=== PATIENT | male | born 1980 | race Caucasian/White ===

== ENCOUNTER 2020-03-12 16:56 | Emergency (ER) | payer SELFPAY ==
[~2020-03-12] VITALS: Ht 175.3 cm; Wt 68.0 kg
== END 2020-03-12 18:19 | disposition home or self-care (01) ==
LOC: ER 16:56
DX: J70.5 Respiratory conditions due to smoke inhalation (principal); Z88.6 Allergy status to analgesic agent; F17.200 Nicotine dependence, unspecified, uncomplicated
CPT/HCPCS: 71046; 93005; 93010; 99284-25

== ENCOUNTER 2020-03-17 17:18 | Emergency (ER) | payer SELFPAY ==
[~2020-03-17] VITALS: Ht 175.3 cm; Wt 68.0 kg
== END 2020-03-17 20:55 | disposition home or self-care (01) ==
LOC: ER 17:18
DX: S61.011A Laceration without foreign body of right thumb without damage to nail, initial encounter (principal); F17.200 Nicotine dependence, unspecified, uncomplicated; Z23 Encounter for immunization; Z88.6 Allergy status to analgesic agent; W27.8XXA Contact with other nonpowered hand tool, initial encounter
CPT/HCPCS: 12002; 73140; 90471; 90714; 99283-25

== ENCOUNTER 2020-03-24 18:39 | Emergency (ER) | payer SELFPAY ==
[~2020-03-24] VITALS: Ht 177.8 cm; Wt 70.3 kg
== END 2020-03-24 19:50 | disposition left against medical advice (07) ==
LOC: ER 18:39
DX: S61.011D Laceration without foreign body of right thumb without damage to nail, subsequent encounter (principal); F17.200 Nicotine dependence, unspecified, uncomplicated; Z88.6 Allergy status to analgesic agent
CPT/HCPCS: 99282

== ENCOUNTER 2020-03-29 20:02 | Emergency (ER) | payer SELFPAY ==
[~2020-03-29] VITALS: Ht 175.3 cm; Wt 70.3 kg
== END 2020-03-29 20:50 | disposition home or self-care (01) ==
LOC: ER 20:02
DX: S61.011D Laceration without foreign body of right thumb without damage to nail, subsequent encounter (principal); F17.200 Nicotine dependence, unspecified, uncomplicated; Z88.6 Allergy status to analgesic agent

== ENCOUNTER 2020-07-23 20:01 | Emergency (ER) | payer OTHER ==
[~2020-07-23] VITALS: Ht 182.9 cm; Wt 81.7 kg
[2020-07-23 20:38] LABS: BASOPHILS ABSOLUTE AUTO 0.11 K/mm3 (0.00-0.23); BASOPHILS PERCENT AUTO 1 % (0-2); EOSINOPHILS ABSOLUTE AUTO 0.33 K/mm3 (0.00-0.68); EOSINOPHILS PERCENT AUTO 3 % (0-6); Hematocrit 48.5 % (37.0-53.0); Hemoglobin 16.1 g/dL (13.5-17.5); IMMATURE GRAN ABSOLUTE AUTO 0.04 K/mm3 (0.00-0.10); IMMATURE GRAN PERCENT AUTO 0 % (0-1); LYMPHOCYTES ABSOLUTE AUTO 3.78 K/mm3 (0.84-5.20); LYMPHOCYTES PERCENT AUTO 31 % (21-46); MONOCYTES ABSOLUTE AUTO 0.83 K/mm3 (0.16-1.47); MONOCYTES PERCENT AUTO 7 % (4-13); Mean Corpuscular HGB 30.1 pg (26.0-34.0); Mean Corpuscular HGB Conc 33.2 g/dL (31.5-36.5); Mean Corpuscular Volume 91 fL (80-100); Mean Platelet Volume 10.4 fL (9.1-12.4); NEUTROPHILS PERCENT AUTO 58 % (41-73); Platelet Count 294 K/mm3 (150-400); RDW Coefficient Variation 13.2 % (11.7-14.2); RDW Standard Deviation 44.2 fL (35.1-46.3); Red Blood Cell Count 5.35 M/mm3 (4.30-5.90); White Blood Cell Count 12.19 K/mm3 (4.00-11.30)
[2020-07-23 20:57] LABS: Troponin I <0.015 ng/mL (0.000-0.040)
[2020-07-23 20:58] LABS: Alanine Aminotransfer (ALT/SGP 30 U/L (12-78); Albumin, Blood 4.3 g/dL (3.4-5.0); Albumin/Globulin Ratio 1.3 (0.8-1.8); Alk Phos 67 U/L (50-136); Anion Gap 5 mmol/L (6-16); Aspartate Aminotrans (AST/SGOT 22 U/L (12-37); Bilirubin, Total 0.2 mg/dL (0.1-1.0); Blood Urea Nitrogen 18 mg/dL (8-24); Bun/Creatinine Ratio 22.4 (12.0-20.0); CO2, Blood 31 mmol/L (21-32); Calcium, Blood 8.9 mg/dL (8.5-10.1); Chloride, Blood 104 mmol/L (98-108); Globulin, Blood 3.4 g/dL (2.2-4.0); Glomerular Filtration Rate >60 (60-); Glucose, Blood 138 mg/dL (70-99); Potassium, Blood 3.8 mmol/L (3.5-5.5); Sodium, Blood 140 mmol/L (136-145); Total Protein, Blood 7.7 g/dL (6.4-8.2)
[2020-07-24] MEDS ORDERED: Veetids 500500 MG PO (19:50)
== END 2020-07-24 22:38 | disposition left against medical advice (07) ==
LOC: ER 20:01
PROVIDERS: Physician Assistant
DX: K03.81 Cracked tooth (principal); R06.02 Shortness of breath; R07.89 Other chest pain; Z53.21 Procedure and treatment not carried out due to patient leaving prior to being seen by health care provider
CPT/HCPCS: 36415; 71046; 80053; 84484; 85025

== ENCOUNTER 2020-07-24 17:44 | Emergency (ER) | payer OTHER ==
[~2020-07-24] VITALS: Ht 175.3 cm; Wt 74.8 kg
[2020-07-24] MEDS ORDERED: Veetids 500500 MG PO (19:50)
== END 2020-07-24 20:00 | disposition home or self-care (01) ==
LOC: ER 17:44
DX: K08.89 Other specified disorders of teeth and supporting structures (principal); R05 Cough; R07.9 Chest pain, unspecified; F17.210 Nicotine dependence, cigarettes, uncomplicated; Z20.828 Contact with and (suspected) exposure to other viral communicable diseases; Z88.6 Allergy status to analgesic agent
CPT/HCPCS: 93005; 93010; 99283-25; U0003

== ENCOUNTER 2020-07-27 10:38 | Emergency (ER) | payer OTHER ==
[~2020-07-27] VITALS: Ht 175.3 cm; Wt 70.3 kg
[~2020-07-27 10:38] MED LIST: Veetids 500500 MG PO
== END 2020-07-27 11:24 | disposition home or self-care (01) ==
LOC: ER 10:38
DX: K04.7 Periapical abscess without sinus (principal); Z79.82 Long term (current) use of aspirin; F17.210 Nicotine dependence, cigarettes, uncomplicated
CPT/HCPCS: 99282

== ENCOUNTER 2020-08-11 12:56 | Emergency (ER) | payer OTHER ==
[~2020-08-11] VITALS: Ht 175.3 cm; Wt 70.3 kg
[2020-08-11 13:43] LABS: BASOPHILS ABSOLUTE AUTO 0.09 K/mm3 (0.00-0.23); BASOPHILS PERCENT AUTO 1 % (0-2); EOSINOPHILS PERCENT AUTO 4 % (0-6); Hematocrit 47.7 % (37.0-53.0); Hemoglobin 15.7 g/dL (13.5-17.5); IMMATURE GRAN ABSOLUTE AUTO 0.07 K/mm3 (0.00-0.10); IMMATURE GRAN PERCENT AUTO 1 % (0-1); LYMPHOCYTES ABSOLUTE AUTO 3.03 K/mm3 (0.84-5.20); LYMPHOCYTES PERCENT AUTO 32 % (21-46); MONOCYTES ABSOLUTE AUTO 0.83 K/mm3 (0.16-1.47); MONOCYTES PERCENT AUTO 9 % (4-13); Mean Corpuscular HGB 30.1 pg (26.0-34.0); Mean Corpuscular HGB Conc 32.9 g/dL (31.5-36.5); Mean Corpuscular Volume 92 fL (80-100); Mean Platelet Volume 10.5 fL (9.1-12.4); NEUTROPHILS ABSOLUTE AUTO 5.19 K/mm3 (1.96-9.15); NEUTROPHILS PERCENT AUTO 54 % (41-73); Platelet Count 274 K/mm3 (150-400); RDW Coefficient Variation 13.2 % (11.7-14.2); RDW Standard Deviation 44.3 fL (35.1-46.3); Red Blood Cell Count 5.21 M/mm3 (4.30-5.90); White Blood Cell Count 9.61 K/mm3 (4.00-11.30)
[2020-08-11 14:16] LABS: Alanine Aminotransfer (ALT/SGP 63 U/L (12-78); Albumin/Globulin Ratio 1.1 (0.8-1.8); Alk Phos 69 U/L (50-136); Anion Gap 5 mmol/L (6-16); Aspartate Aminotrans (AST/SGOT 27 U/L (12-37); Bilirubin, Total 0.3 mg/dL (0.1-1.0); Blood Urea Nitrogen 14 mg/dL (8-24); Bun/Creatinine Ratio 16.1 (12.0-20.0); CO2, Blood 31 mmol/L (21-32); Calcium, Blood 8.6 mg/dL (8.5-10.1); Chloride, Blood 105 mmol/L (98-108); Creatinine, Blood 0.87 mg/dL (0.60-1.20); Globulin, Blood 3.6 g/dL (2.2-4.0); Glomerular Filtration Rate >60 (60-); Glucose, Blood 108 mg/dL (70-99); Potassium, Blood 3.8 mmol/L (3.5-5.5); Sodium, Blood 141 mmol/L (136-145); Total Protein, Blood 7.6 g/dL (6.4-8.2); Troponin I <0.015 ng/mL (0.000-0.040)
[2020-08-11] MEDS ORDERED: PEPCID40 MG PO (14:50)
[2020-08-11] MEDS ORDERED: ONDA4ODT SL (14:50)
== END 2020-08-11 14:57 | disposition home or self-care (01) ==
LOC: ER 12:56
PROVIDERS: Emergency Medicine
DX: R07.9 Chest pain, unspecified (principal); R19.5 Other fecal abnormalities; Z88.6 Allergy status to analgesic agent; Z87.891 Personal history of nicotine dependence
CPT/HCPCS: 36415; 71046; 80053; 82272; 84484; 85025; 93005; 93010; 99284-25

== ENCOUNTER → 2020-08-19 | Outpatient (CLI) | payer OTHER ==
[~2020-08-19] MED LIST changes: +ONDA4ODT SL; +PEPCID40 MG PO
== END | disposition home or self-care (01) ==
LOC: LAB EV 19:09 → LAB SHORT 19:09
DX: K22.8 Other specified diseases of esophagus (principal); Z20.828 Contact with and (suspected) exposure to other viral communicable diseases
CPT/HCPCS: U0003

== ENCOUNTER 2020-09-08 18:13 | Emergency (ER) | payer OTHER ==
[~2020-09-08] VITALS: Ht 175.3 cm; Wt 70.3 kg
== END 2020-09-08 21:23 | disposition home or self-care (01) ==
LOC: ER 18:13
DX: R10.9 Unspecified abdominal pain (principal); R14.0 Abdominal distension (gaseous); R20.0 Anesthesia of skin; F31.9 Bipolar disorder, unspecified; Z88.6 Allergy status to analgesic agent; F17.210 Nicotine dependence, cigarettes, uncomplicated
CPT/HCPCS: 99283

== ENCOUNTER 2020-11-20 21:19 | Emergency (ER) | payer OTHER ==
[~2020-11-20] VITALS: Ht 175.3 cm; Wt 74.8 kg
[2020-11-20 22:11] LABS: BASOPHILS PERCENT AUTO 1 % (0-2); EOSINOPHILS ABSOLUTE AUTO 0.26 K/mm3 (0.00-0.68); EOSINOPHILS PERCENT AUTO 2 % (0-6); Hematocrit 46.1 % (37.0-53.0); Hemoglobin 15.3 g/dL (13.5-17.5); IMMATURE GRAN ABSOLUTE AUTO 0.03 K/mm3 (0.00-0.10); IMMATURE GRAN PERCENT AUTO 0 % (0-1); LYMPHOCYTES ABSOLUTE AUTO 3.17 K/mm3 (0.84-5.20); LYMPHOCYTES PERCENT AUTO 29 % (21-46); MONOCYTES ABSOLUTE AUTO 1.19 K/mm3 (0.16-1.47); MONOCYTES PERCENT AUTO 11 % (4-13); Mean Corpuscular HGB Conc 33.2 g/dL (31.5-36.5); Mean Corpuscular Volume 90 fL (80-100); Mean Platelet Volume 10.3 fL (9.1-12.4); NEUTROPHILS ABSOLUTE AUTO 6.18 K/mm3 (1.96-9.15); NEUTROPHILS PERCENT AUTO 57 % (41-73); Platelet Count 278 K/mm3 (150-400); RDW Coefficient Variation 12.4 % (11.7-14.2); RDW Standard Deviation 41.2 fL (35.1-46.3); White Blood Cell Count 10.93 K/mm3 (4.00-11.30)
[2020-11-20 22:29] LABS: Alanine Aminotransfer (ALT/SGP 40 U/L (12-78); Albumin/Globulin Ratio 1.2 (0.8-1.8); Alk Phos 73 U/L (50-136); Anion Gap 5 mmol/L (6-16); Aspartate Aminotrans (AST/SGOT 27 U/L (12-37); Bilirubin, Total 0.4 mg/dL (0.1-1.0); Blood Urea Nitrogen 12 mg/dL (8-24); Bun/Creatinine Ratio 12.9 (12.0-20.0); CO2, Blood 30 mmol/L (21-32); Calcium, Blood 8.6 mg/dL (8.5-10.1); Chloride, Blood 104 mmol/L (98-108); Creatinine, Blood 0.93 mg/dL (0.60-1.20); Globulin, Blood 3.4 g/dL (2.2-4.0); Glomerular Filtration Rate >60 (60-); Glucose, Blood 115 mg/dL (70-99); Potassium, Blood 3.6 mmol/L (3.5-5.5); Sodium, Blood 139 mmol/L (136-145); Total Protein, Blood 7.4 g/dL (6.4-8.2)
[2020-11-20 23:52] LABS: Troponin I <0.015 ng/mL (0.000-0.040)
[2020-11-21] MEDS ORDERED: Vistaril25 MG PO (00:29)
== END 2020-11-21 00:42 | disposition home or self-care (01) ==
LOC: ER 21:19
PROVIDERS: Physician Assistant
DX: R11.2 Nausea with vomiting, unspecified (principal); Z88.6 Allergy status to analgesic agent; F17.210 Nicotine dependence, cigarettes, uncomplicated
CPT/HCPCS: 36415; 80053; 83690; 84484; 85025; 93005; 93010; 96374; 99284-25; A9270; J2060; J2405

== ENCOUNTER 2020-12-23 17:28 | Emergency (ER) | payer OTHER ==
[~2020-12-23] VITALS: Ht 175.3 cm; Wt 74.8 kg
[~2020-12-23 17:28] MED LIST changes: +Vistaril25 MG PO
== END 2020-12-23 18:23 | disposition home or self-care (01) ==
LOC: ER 17:28
DX: S93.522A Sprain of metatarsophalangeal joint of left great toe, initial encounter (principal); Z88.6 Allergy status to analgesic agent; F17.210 Nicotine dependence, cigarettes, uncomplicated; W03.XXXA Other fall on same level due to collision with another person, initial encounter
CPT/HCPCS: 73630; 99283-25

== ENCOUNTER 2021-07-09 02:55 | Emergency (ER) | payer OTHER ==
[~2021-07-09] VITALS: Ht 177.8 cm; Wt 74.8 kg
== END 2021-07-09 03:45 | disposition left against medical advice (07) ==
LOC: ER 02:55
DX: Z53.21 Procedure and treatment not carried out due to patient leaving prior to being seen by health care provider (principal)
CPT/HCPCS: 93005; 93010

== ENCOUNTER 2023-08-24 11:14 | Emergency (ER) | payer OTHER ==
[~2023-08-24] VITALS: Ht 175.3 cm; Wt 74.8 kg
[2023-08-24 11:57] LABS: BASOPHILS ABSOLUTE AUTO 0.06 K/mm3 (0.00-0.23); BASOPHILS PERCENT AUTO 0 % (0-2); EOSINOPHILS ABSOLUTE AUTO 0.25 K/mm3 (0.00-0.68); EOSINOPHILS PERCENT AUTO 2 % (0-6); Hematocrit 51.4 % (37.0-53.0); Hemoglobin 17.7 g/dL (13.5-17.5); IMMATURE GRAN ABSOLUTE AUTO 0.06 K/mm3 (0.00-0.10); IMMATURE GRAN PERCENT AUTO 0 % (0-1); LYMPHOCYTES ABSOLUTE AUTO 1.16 K/mm3 (0.84-5.20); LYMPHOCYTES PERCENT AUTO 8 % (21-46); MONOCYTES ABSOLUTE AUTO 1.13 K/mm3 (0.16-1.47); MONOCYTES PERCENT AUTO 8 % (4-13); Mean Corpuscular HGB 30.4 pg (26.0-34.0); Mean Corpuscular HGB Conc 34.4 g/dL (31.5-36.5); Mean Corpuscular Volume 88 fL (80-100); Mean Platelet Volume 10.9 fL (9.1-12.4); NEUTROPHILS ABSOLUTE AUTO 11.18 K/mm3 (1.96-9.15); NEUTROPHILS PERCENT AUTO 81 % (41-73); Platelet Count 258 K/mm3 (150-400); RDW Coefficient Variation 13.2 % (11.7-14.2); RDW Standard Deviation 42.5 fL (35.1-46.3); Red Blood Cell Count 5.83 M/mm3 (4.30-5.90); White Blood Cell Count 13.84 K/mm3 (4.00-11.30)
[2023-08-24 12:24] LABS: Albumin, Blood 3.9 g/dL (3.4-5.0); Albumin/Globulin Ratio 1.1 (0.8-1.8); Bilirubin, Total 0.5 mg/dL (0.1-1.0); Bun/Creatinine Ratio 19.8 (12.0-20.0); Calcium, Blood 8.7 mg/dL (8.5-10.1); Creatinine, Blood 1.06 mg/dL (0.60-1.20); Globulin, Blood 3.7 g/dL (2.2-4.0); Potassium, Blood 4.1 mmol/L (3.5-5.5); Total Protein, Blood 7.6 g/dL (6.4-8.2)
[2023-08-24 12:25] LABS: Influenza A, PCR NEGATIVE (NEGATIVE); Influenza B, PCR NEGATIVE (NEGATIVE); Resp Syncytial Virus, PCR NEGATIVE (NEGATIVE); SARS-Cov-2 (COVID-19) PCR, MMC NEGATIVE (NEGATIVE)
[2023-08-24 14:45] VITALS: BP 119/97
[2023-08-24 15:16] LABS: Source, Urine Clean Catch
[2023-08-24 15:39] LABS: Appearance, Urine Clear (Clear); Bilirubin, Urine Neg (Neg); Blood, Urine Neg (Neg); Color, Urine Yellow (P-Yellow); Glucose Qualitative, Urine Neg (Neg); Ketones, Urine Neg (Neg); Leukocyte Esterase, Urine Neg (Neg); Nitrite, Urine Neg (Neg); Protein, Urine Neg (Neg); Specific Gravity, Urine 1.015 (1.003-1.022); Urobilinogen, Urine NORM (Normal)
[2023-08-24] MEDS ORDERED: ONDA4ODT MM (15:43)
== END 2023-08-24 15:54 | disposition home or self-care (01) ==
LOC: ER 11:14
PROVIDERS: Student in an Organized Health Care Education/Training Program
DX: K52.9 Noninfective gastroenteritis and colitis, unspecified (principal); F17.210 Nicotine dependence, cigarettes, uncomplicated; Z20.822 Contact with and (suspected) exposure to COVID-19; Z88.8 Allergy status to other drugs, medicaments and biological substances
CPT/HCPCS: 0241U; 80053; 81003; 83690; 85025; 96361; 96374; 96375; 99284-25; J2405; J7030

== ENCOUNTER 2023-08-27 19:27 | Emergency (ER) | payer OTHER ==
[~2023-08-27] VITALS: Ht 177.8 cm; Wt 74.8 kg
[~2023-08-27 19:27] MED LIST changes: +ONDA4ODT MM
[2023-08-27 20:11] LABS: Source, Urine Clean Catch
[2023-08-27 20:13] LABS: Appearance, Urine Cloudy (Clear); Blood, Urine 5+ (Neg); Color, Urine Brown (P-Yellow); Glucose Qualitative, Urine Neg (Neg); Ketones, Urine 1+ (Neg); Leukocyte Esterase, Urine 2+ (Neg); Nitrite, Urine Pos (Neg); Protein, Urine 3+ (Neg); Urobilinogen, Urine 1+ (Normal)
[2023-08-27 20:18] LABS: Bilirubin, Urine 1+ (Neg)
[2023-08-27 20:25] LABS: Bacteria Many /hpf; Calcium Oxalate Crystals Mod /hpf; Red Blood Cells, Urine TNTC /hpf (0-2); Squamous Epithelial Cells Rare /hpf (Few)
[2023-08-27 20:39] LABS: BASOPHILS ABSOLUTE AUTO 0.06 K/mm3 (0.00-0.23); BASOPHILS PERCENT AUTO 1 % (0-2); EOSINOPHILS ABSOLUTE AUTO 0.26 K/mm3 (0.00-0.68); EOSINOPHILS PERCENT AUTO 2 % (0-6); Hematocrit 46.3 % (37.0-53.0); IMMATURE GRAN ABSOLUTE AUTO 0.03 K/mm3 (0.00-0.10); IMMATURE GRAN PERCENT AUTO 0 % (0-1); LYMPHOCYTES ABSOLUTE AUTO 3.21 K/mm3 (0.84-5.20); LYMPHOCYTES PERCENT AUTO 28 % (21-46); MONOCYTES ABSOLUTE AUTO 0.84 K/mm3 (0.16-1.47); MONOCYTES PERCENT AUTO 7 % (4-13); Mean Corpuscular HGB Conc 34.6 g/dL (31.5-36.5); Mean Corpuscular Volume 87 fL (80-100); Mean Platelet Volume 10.6 fL (9.1-12.4); NEUTROPHILS ABSOLUTE AUTO 6.94 K/mm3 (1.96-9.15); NEUTROPHILS PERCENT AUTO 61 % (41-73); Platelet Count 261 K/mm3 (150-400); RDW Coefficient Variation 13.2 % (11.7-14.2); Red Blood Cell Count 5.34 M/mm3 (4.30-5.90); White Blood Cell Count 11.34 K/mm3 (4.00-11.30)
[2023-08-27 21:05] LABS: Albumin, Blood 3.7 g/dL (3.4-5.0); Albumin/Globulin Ratio 1.1 (0.8-1.8); Bilirubin, Total 0.3 mg/dL (0.1-1.0); Bun/Creatinine Ratio 12.3 (12.0-20.0); Calcium, Blood 9.1 mg/dL (8.5-10.1); Creatinine, Blood 1.14 mg/dL (0.60-1.20); Globulin, Blood 3.4 g/dL (2.2-4.0); Potassium, Blood 3.7 mmol/L (3.5-5.5); Total Protein, Blood 7.1 g/dL (6.4-8.2)
[2023-08-28 00:37] VITALS: BP 140/107
== END 2023-08-28 03:15 | disposition home or self-care (01) ==
LOC: ER 19:27
PROVIDERS: Emergency Medicine
DX: R31.9 Hematuria, unspecified (principal); E86.0 Dehydration; F17.210 Nicotine dependence, cigarettes, uncomplicated; Z87.39 Personal history of other diseases of the musculoskeletal system and connective tissue; Z88.8 Allergy status to other drugs, medicaments and biological substances
CPT/HCPCS: 74177; 80053; 81001; 82550; 83605; 85025; 87081; 87086; 99284-25; J0696; J7030; Q9967

== ENCOUNTER 2024-07-24 12:38 | Emergency (ER) | payer OTHER ==
[~2024-07-24] VITALS: Ht 177.8 cm; Wt 72.5 kg
[2024-07-24 12:56] VITALS: BP 137/97
[2024-07-24 14:05] LABS: U Amphetamine Screen Not Detected; U Barbituate Screen Not Detected; U Benzodiazapine Screen Not Detected; U Buprenorphine Screen Not Detected; U Cannabinoids Screen DETECTED; U Cocaine Screen Not Detected; U Methadone Screen Not Detected; U Methamphetamine Screen Not Detected; U Opiates Screen Not Detected; U Oxycodone Screen Not Detected; U Phencyclidine Screen Not Detected
== END 2024-07-24 14:19 | disposition home or self-care (01) ==
LOC: ER 12:38
PROVIDERS: Physician Assistant
DX: F41.9 Anxiety disorder, unspecified (principal); F17.210 Nicotine dependence, cigarettes, uncomplicated; Z88.6 Allergy status to analgesic agent
CPT/HCPCS: 99283

== ENCOUNTER → 2024-08-26 | Outpatient (CLI) | payer OTHER ==
[2024-08-27 13:42] LABS: Chlamydia Trachomatis Urine NOT DETECTED (NOT DETECT); Neisseria Gonorrhoea Urine NOT DETECTED (NOT DETECT)
== END ==
LOC: LAB 16:39 → LAB SHORT 16:39
PROVIDERS: Family Medicine
DX: R30.0 Dysuria (principal); Z20.9 Contact with and (suspected) exposure to unspecified communicable disease; Z72.51 High risk heterosexual behavior
CPT/HCPCS: 87086; 87491; 87591

== ENCOUNTER → 2024-10-21 | Outpatient (CLI) | payer OTHER ==
[~2024-10-21] MED LIST changes: +ACET500 PO
[2024-10-21 14:54] LABS: BASOPHILS ABSOLUTE AUTO 0.09 K/mm3 (0.00-0.23); BASOPHILS PERCENT AUTO 1 % (0-2); EOSINOPHILS ABSOLUTE AUTO 0.13 K/mm3 (0.00-0.68); EOSINOPHILS PERCENT AUTO 1 % (0-6); Hematocrit 47.1 % (37.0-53.0); Hemoglobin 16.1 g/dL (13.5-17.5); IMMATURE GRAN ABSOLUTE AUTO 0.03 K/mm3 (0.00-0.10); IMMATURE GRAN PERCENT AUTO 0 % (0-1); LYMPHOCYTES ABSOLUTE AUTO 2.66 K/mm3 (0.84-5.20); LYMPHOCYTES PERCENT AUTO 27 % (21-46); MONOCYTES ABSOLUTE AUTO 0.69 K/mm3 (0.16-1.47); MONOCYTES PERCENT AUTO 7 % (4-13); Mean Corpuscular HGB 30.1 pg (26.0-34.0); Mean Corpuscular HGB Conc 34.2 g/dL (31.5-36.5); Mean Corpuscular Volume 88 fL (80-100); Mean Platelet Volume 10.5 fL (9.1-12.4); NEUTROPHILS PERCENT AUTO 64 % (41-73); Platelet Count 295 K/mm3 (150-400); RDW Coefficient Variation 13.9 % (11.7-14.2); RDW Standard Deviation 44.4 fL (35.1-46.3); Red Blood Cell Count 5.34 M/mm3 (4.30-5.90)
[2024-10-21 15:17] LABS: Albumin, Blood 4.2 g/dL (3.4-5.0); Albumin/Globulin Ratio 1.1 (0.8-1.8); Bilirubin, Total 0.4 mg/dL (0.1-1.0); Calcium, Blood 9.2 mg/dL (8.5-10.1); Creatinine, Blood 1.17 mg/dL (0.60-1.20); Globulin, Blood 3.7 g/dL (2.2-4.0); Potassium, Blood 3.7 mmol/L (3.5-5.5); Thyroid Stimulating Hormone 1.949 uIU/mL (0.360-4.800); Total Protein, Blood 7.9 g/dL (6.4-8.2)
== END ==
LOC: LAB SHORT 14:49 → LAB 14:49
PROVIDERS: Physician Assistant
DX: R53.83 Other fatigue (principal)
CPT/HCPCS: 80053; 84443; 85025

== ENCOUNTER 2025-03-22 03:35 | Day surgery (SDC) | payer OTHER ==
[~2025-03-22 03:35] MED LIST changes: +AMOCLA875 PO; +HYDR1TAB94 PO; +[UNRECOGNIZED DRUG - OTHER] PO
== END 2025-03-22 23:42 | disposition home or self-care (01) ==
LOC: WOUND 03:35
DX: S91.301A Unspecified open wound, right foot, initial encounter (principal); X58.XXXA Exposure to other specified factors, initial encounter
CPT/HCPCS: G0463

== ENCOUNTER 2025-03-24 03:02 | Day surgery (SDC) | payer OTHER ==
[2025-03-24] MEDS ORDERED: Lidocaine HCl 4% Cream 5 GM ONE (12:46)
== END 2025-03-24 23:00 | disposition home or self-care (01) ==
LOC: WOUND 03:02
DX: S91.301A Unspecified open wound, right foot, initial encounter (principal); W20.8XXA Other cause of strike by thrown, projected or falling object, initial encounter
CPT/HCPCS: A9270

== ENCOUNTER 2025-04-05 02:52 | Day surgery (SDC) | payer OTHER | END 2025-04-05 23:00 | disposition home or self-care (01) | LOC: WOUND 02:52 | DX: L97.515 Non-pressure chronic ulcer of other part of right foot with muscle involvement without evidence of necrosis (principal); S91.301A Unspecified open wound, right foot, initial encounter; L02.611 Cutaneous abscess of right foot; B95.5 Unspecified streptococcus as the cause of diseases classified elsewhere; W20.8XXA Other cause of strike by thrown, projected or falling object, initial encounter | CPT/HCPCS: G0463 ==

== ENCOUNTER 2025-04-12 08:00 | Day surgery (SDC) | payer OTHER | END 2025-04-12 23:00 | disposition home or self-care (01) | LOC: WOUND 08:00 | DX: L97.515 Non-pressure chronic ulcer of other part of right foot with muscle involvement without evidence of necrosis (principal); S91.301D Unspecified open wound, right foot, subsequent encounter; L02.611 Cutaneous abscess of right foot | CPT/HCPCS: G0463 ==

== ENCOUNTER 2025-04-14 03:21 | Day surgery (SDC) | payer OTHER ==
[2025-04-14] MEDS ORDERED: Lidocaine HCl 4% Cream 5 GM ONE (14:58)
== END 2025-04-14 23:00 | disposition home or self-care (01) ==
LOC: WOUND 03:21
DX: L97.515 Non-pressure chronic ulcer of other part of right foot with muscle involvement without evidence of necrosis (principal); S91.301D Unspecified open wound, right foot, subsequent encounter; L02.611 Cutaneous abscess of right foot
CPT/HCPCS: A9270

== ENCOUNTER 2025-04-17 14:32 | Emergency (ER) | payer OTHER ==
[~2025-04-17] VITALS: Ht 175.3 cm; Wt 72.6 kg
[2025-04-17 14:55] VITALS: BP 101/63
== END 2025-04-17 17:28 | disposition home or self-care (01) ==
LOC: ER 14:32
DX: Z48.00 Encounter for change or removal of nonsurgical wound dressing (principal); L97.519 Non-pressure chronic ulcer of other part of right foot with unspecified severity
CPT/HCPCS: 99283

== ENCOUNTER 2025-04-19 04:11 | Day surgery (SDC) | payer OTHER | END 2025-04-19 23:00 | disposition home or self-care (01) | LOC: WOUND 04:11 | DX: S91.301A Unspecified open wound, right foot, initial encounter (principal); L02.611 Cutaneous abscess of right foot; W20.8XXA Other cause of strike by thrown, projected or falling object, initial encounter | CPT/HCPCS: G0463 ==

== ENCOUNTER 2025-04-21 01:56 | Day surgery (SDC) | payer OTHER ==
[2025-04-21] MEDS ORDERED: Lidocaine HCl 4% Cream 5 GM ONE (11:19)
== END 2025-04-21 23:00 | disposition home or self-care (01) ==
LOC: WOUND 01:56
DX: S91.301A Unspecified open wound, right foot, initial encounter (principal); L02.611 Cutaneous abscess of right foot; W20.8XXA Other cause of strike by thrown, projected or falling object, initial encounter
CPT/HCPCS: A9270

== ENCOUNTER 2025-04-23 01:41 | Day surgery (SDC) | payer OTHER | END 2025-04-23 23:00 | disposition home or self-care (01) | LOC: WOUND 01:41 | DX: L97.515 Non-pressure chronic ulcer of other part of right foot with muscle involvement without evidence of necrosis (principal); S91.301D Unspecified open wound, right foot, subsequent encounter; L02.611 Cutaneous abscess of right foot | CPT/HCPCS: G0463 ==

== ENCOUNTER 2025-04-26 09:12 | Day surgery (SDC) | payer OTHER | END 2025-04-26 23:00 | disposition home or self-care (01) | LOC: WOUND 09:12 | DX: L97.515 Non-pressure chronic ulcer of other part of right foot with muscle involvement without evidence of necrosis (principal); S91.301A Unspecified open wound, right foot, initial encounter; L02.611 Cutaneous abscess of right foot | CPT/HCPCS: G0463 ==

== ENCOUNTER 2025-04-28 03:57 | Day surgery (SDC) | payer OTHER ==
[2025-04-28] MEDS ORDERED: Lidocaine HCl 4% Cream 5 GM ONE (12:55)
== END 2025-04-28 23:00 | disposition home or self-care (01) ==
LOC: WOUND 03:57
DX: S91.301A Unspecified open wound, right foot, initial encounter (principal); L02.611 Cutaneous abscess of right foot; W20.8XXA Other cause of strike by thrown, projected or falling object, initial encounter
CPT/HCPCS: A6196; A9270

== ENCOUNTER 2025-04-30 05:58 | Day surgery (SDC) | payer OTHER | END 2025-04-30 23:00 | disposition home or self-care (01) | LOC: WOUND 05:58 | DX: L97.515 Non-pressure chronic ulcer of other part of right foot with muscle involvement without evidence of necrosis (principal); L02.611 Cutaneous abscess of right foot | CPT/HCPCS: A6196; G0463 ==

== ENCOUNTER 2025-05-03 00:43 | Day surgery (SDC) | payer OTHER | END 2025-05-03 23:00 | disposition home or self-care (01) | LOC: WOUND 00:43 | DX: S91.301A Unspecified open wound, right foot, initial encounter (principal); X58.XXXA Exposure to other specified factors, initial encounter | CPT/HCPCS: A6196; G0463 ==

== ENCOUNTER 2025-05-05 03:07 | Day surgery (SDC) | payer OTHER ==
[2025-05-05] MEDS ORDERED: Lidocaine HCl 4% Cream 5 GM ONE (10:50)
== END 2025-05-05 23:00 | disposition home or self-care (01) ==
LOC: WOUND 03:07
DX: S91.301A Unspecified open wound, right foot, initial encounter (principal); L02.611 Cutaneous abscess of right foot; W20.8XXA Other cause of strike by thrown, projected or falling object, initial encounter
CPT/HCPCS: A6196; A9270; G0463

== ENCOUNTER 2025-05-07 03:12 | Day surgery (SDC) | payer OTHER | END 2025-05-07 23:00 | disposition home or self-care (01) | LOC: WOUND 03:12 | DX: L97.515 Non-pressure chronic ulcer of other part of right foot with muscle involvement without evidence of necrosis (principal); S91.301A Unspecified open wound, right foot, initial encounter; X58.XXXA Exposure to other specified factors, initial encounter | CPT/HCPCS: A6196; G0463 ==

== ENCOUNTER 2025-05-10 08:00 | Day surgery (SDC) | payer OTHER | END 2025-05-10 23:00 | disposition home or self-care (01) | LOC: WOUND 08:00 | DX: L97.515 Non-pressure chronic ulcer of other part of right foot with muscle involvement without evidence of necrosis (principal); S91.301D Unspecified open wound, right foot, subsequent encounter; L02.611 Cutaneous abscess of right foot | CPT/HCPCS: A6196; G0463 ==

== ENCOUNTER 2025-05-12 03:36 | Day surgery (SDC) | payer OTHER ==
[2025-05-12] MEDS ORDERED: Lidocaine HCl 4% Cream 5 GM ONE (10:57)
== END 2025-05-12 23:00 | disposition home or self-care (01) ==
LOC: WOUND 03:36
DX: S91.301A Unspecified open wound, right foot, initial encounter (principal); L02.611 Cutaneous abscess of right foot; W20.8XXA Other cause of strike by thrown, projected or falling object, initial encounter
CPT/HCPCS: A6196; A9270; G0463

== ENCOUNTER 2025-05-14 04:16 | Day surgery (SDC) | payer OTHER | END 2025-05-14 23:00 | disposition home or self-care (01) | LOC: WOUND 04:16 | DX: L97.515 Non-pressure chronic ulcer of other part of right foot with muscle involvement without evidence of necrosis (principal); S91.301D Unspecified open wound, right foot, subsequent encounter; L02.611 Cutaneous abscess of right foot | CPT/HCPCS: A6196; G0463 ==

== ENCOUNTER 2025-05-17 00:39 | Day surgery (SDC) | payer OTHER | END 2025-05-17 23:00 | disposition home or self-care (01) | LOC: WOUND 00:39 | DX: S91.301D Unspecified open wound, right foot, subsequent encounter (principal); L97.515 Non-pressure chronic ulcer of other part of right foot with muscle involvement without evidence of necrosis; L02.611 Cutaneous abscess of right foot | CPT/HCPCS: A6196; G0463 ==

== ENCOUNTER 2025-05-20 01:50 | Day surgery (SDC) | payer OTHER | END 2025-05-20 23:00 | disposition home or self-care (01) | LOC: WOUND 01:50 | DX: L97.515 Non-pressure chronic ulcer of other part of right foot with muscle involvement without evidence of necrosis (principal); S91.301D Unspecified open wound, right foot, subsequent encounter; L02.611 Cutaneous abscess of right foot | CPT/HCPCS: A6196; G0463 ==

== ENCOUNTER → 2025-05-25 | Day surgery (SDC) | payer OTHER ==
[~2025-05-25] MED LIST changes: +Lidocaine HCl 4% Cream 5 GM ONE
== END ==
LOC: WOUND 05:07
DX: S91.301A Unspecified open wound, right foot, initial encounter (principal); W20.8XXA Other cause of strike by thrown, projected or falling object, initial encounter
CPT/HCPCS: A9270

== ENCOUNTER 2025-06-02 08:04 | Day surgery (SDC) | payer OTHER ==
[~2025-06-02 08:04] MED LIST changes: -Lidocaine HCl 4% Cream 5 GM ONE
[2025-06-02] MEDS ORDERED: Lidocaine HCl 4% Cream 5 GM ONE (15:32)
== END 2025-06-02 23:00 | disposition home or self-care (01) ==
LOC: WOUND 08:04
DX: S91.301A Unspecified open wound, right foot, initial encounter (principal); L97.515 Non-pressure chronic ulcer of other part of right foot with muscle involvement without evidence of necrosis; L02.611 Cutaneous abscess of right foot; X58.XXXA Exposure to other specified factors, initial encounter
CPT/HCPCS: A6196; A9270; G0463

== ENCOUNTER 2025-06-04 00:48 | Day surgery (SDC) | payer OTHER | END 2025-06-04 23:00 | disposition home or self-care (01) | LOC: WOUND 00:48 | DX: L97.515 Non-pressure chronic ulcer of other part of right foot with muscle involvement without evidence of necrosis (principal); S91.301D Unspecified open wound, right foot, subsequent encounter; L02.611 Cutaneous abscess of right foot | CPT/HCPCS: G0463 ==

== ENCOUNTER 2025-06-07 00:23 | Day surgery (SDC) | payer OTHER | END 2025-06-07 23:18 | disposition home or self-care (01) | LOC: WOUND 00:23 | DX: S91.301D Unspecified open wound, right foot, subsequent encounter (principal); L02.611 Cutaneous abscess of right foot | CPT/HCPCS: G0463 ==

== ENCOUNTER 2025-06-09 04:25 | Day surgery (SDC) | payer OTHER ==
[2025-06-09] MEDS ORDERED: Lidocaine HCl 4% Cream 5 GM ONE (13:44)
== END 2025-06-09 23:00 | disposition home or self-care (01) ==
LOC: WOUND 04:25
DX: S91.301D Unspecified open wound, right foot, subsequent encounter (principal); L02.611 Cutaneous abscess of right foot; L97.515 Non-pressure chronic ulcer of other part of right foot with muscle involvement without evidence of necrosis
CPT/HCPCS: A9270; G0463

== ENCOUNTER 2025-06-11 08:00 | Day surgery (SDC) | payer OTHER | END 2025-06-11 23:00 | disposition home or self-care (01) | LOC: WOUND 08:00 | DX: S91.301D Unspecified open wound, right foot, subsequent encounter (principal); L02.611 Cutaneous abscess of right foot | CPT/HCPCS: G0463 ==

== ENCOUNTER 2025-06-15 01:01 | Day surgery (SDC) | payer OTHER | END 2025-06-15 23:00 | disposition home or self-care (01) | LOC: WOUND 01:01 | DX: S91.301D Unspecified open wound, right foot, subsequent encounter (principal); L02.611 Cutaneous abscess of right foot | CPT/HCPCS: G0463 ==

== ENCOUNTER 2025-06-18 02:21 | Day surgery (SDC) | payer OTHER | END 2025-06-18 23:00 | disposition home or self-care (01) | LOC: WOUND 02:21 | DX: L97.515 Non-pressure chronic ulcer of other part of right foot with muscle involvement without evidence of necrosis (principal); S91.301D Unspecified open wound, right foot, subsequent encounter; L02.611 Cutaneous abscess of right foot | CPT/HCPCS: G0463 ==

== ENCOUNTER 2025-06-21 01:34 | Day surgery (SDC) | payer OTHER | END 2025-06-21 23:00 | disposition home or self-care (01) | LOC: WOUND 01:34 | DX: S91.301D Unspecified open wound, right foot, subsequent encounter (principal); L02.611 Cutaneous abscess of right foot | CPT/HCPCS: A6213; G0463 ==

== ENCOUNTER 2025-06-28 02:41 | Day surgery (SDC) | payer OTHER | END 2025-06-28 23:00 | disposition home or self-care (01) | LOC: WOUND 02:41 | DX: Z87.828 Personal history of other (healed) physical injury and trauma (principal); F17.210 Nicotine dependence, cigarettes, uncomplicated | CPT/HCPCS: G0463 ==

== ENCOUNTER 2025-08-11 16:40 | Emergency (ER) | payer OTHER ==
[~2025-08-11] VITALS: Ht 175.3 cm; Wt 72.6 kg
[2025-08-11 17:35] LABS: BASOPHILS ABSOLUTE AUTO 0.07 K/mm3 (0.00-0.23); BASOPHILS PERCENT AUTO 1 % (0-2); EOSINOPHILS ABSOLUTE AUTO 0.09 K/mm3 (0.00-0.68); EOSINOPHILS PERCENT AUTO 1 % (0-6); Hematocrit 46.9 % (37.0-53.0); Hemoglobin 15.5 g/dL (13.5-17.5); IMMATURE GRAN ABSOLUTE AUTO 0.03 K/mm3 (0.00-0.10); IMMATURE GRAN PERCENT AUTO 0 % (0-1); LYMPHOCYTES ABSOLUTE AUTO 2.46 K/mm3 (0.84-5.20); LYMPHOCYTES PERCENT AUTO 20 % (21-46); MONOCYTES ABSOLUTE AUTO 0.64 K/mm3 (0.16-1.47); MONOCYTES PERCENT AUTO 5 % (4-13); Mean Corpuscular HGB Conc 33.0 g/dL (31.5-36.5); Mean Corpuscular Volume 88 fL (80-100); NEUTROPHILS ABSOLUTE AUTO 8.86 K/mm3 (1.96-9.15); NEUTROPHILS PERCENT AUTO 73 % (41-73); NRBC ABSOLUTE 0.00 K/mm3 (0.00-0.02); NRBC Auto 0.0 /100 WBC (0.0-0.2); Platelet Count 313 K/mm3 (150-400); RDW Coefficient Variation 13.3 % (11.7-14.2); RDW Standard Deviation 43.1 fL (35.1-46.3)
[2025-08-11 18:07] LABS: Alanine Aminotransfer (ALT/SGP 30.0 U/L (12-78); Albumin, Blood 4.3 g/dL (3.4-5.0); Albumin/Globulin Ratio 1.2 (0.8-1.8); Anion Gap 7.0 mmol/L (3-11); Aspartate Aminotrans (AST/SGOT 25.0 U/L (12-37); Bilirubin, Total 0.5 mg/dL (0.1-1.0); Blood Urea Nitrogen 21.0 mg/dL (8-24); CO2, Blood 31.0 mmol/L (21-32); Calcium, Blood 9.6 mg/dL (8.5-10.1); Chloride, Blood 102.0 mmol/L (98-108); Creatinine, Blood 1.03 mg/dL (0.60-1.20); Globulin, Blood 3.6 g/dL (2.2-4.0); Glucose, Blood 126.0 mg/dL (70-99); Potassium, Blood 3.5 mmol/L (3.5-5.5); Sodium, Blood 136.0 mmol/L (136-145); Total Protein, Blood 7.9 g/dL (6.4-8.2)
[2025-08-11 18:29] LABS: Source, Urine Clean Catch
[2025-08-11 18:39] LABS: Bilirubin, Urine Neg (Neg); Color, Urine Yellow (P-Yellow); Glucose Qualitative, Urine Neg (Neg); Ketones, Urine 1+ (Neg); Leukocyte Esterase, Urine Neg (Neg); Protein, Urine 1+ (Neg); Specific Gravity, Urine 1.030 (1.003-1.022); Urobilinogen, Urine NORM (Normal)
[2025-08-11 20:33] LABS: Chlamydia Trachomatis Urine NOT DETECTED (NOT DETECT); Neisseria Gonorrhoea Urine NOT DETECTED (NOT DETECT)
[2025-08-11 22:25] VITALS: BP 114/69
== END 2025-08-11 22:27 | disposition home or self-care (01) ==
LOC: ER 16:40
PROVIDERS: Student in an Organized Health Care Education/Training Program
DX: F41.8 Other specified anxiety disorders (principal); R79.89 Other specified abnormal findings of blood chemistry; F17.210 Nicotine dependence, cigarettes, uncomplicated; Z88.8 Allergy status to other drugs, medicaments and biological substances; Z79.899 Other long term (current) drug therapy
CPT/HCPCS: 80053; 82550; 84484; 85025; 87491; 87591; 93005; 93010; 99283-25